=== PATIENT | male | born 1970 | race Caucasian/White ===

== ENCOUNTER → 2017-02-22 | Outpatient (CLI) | payer OTHER ==
[~2017-02-22] MED LIST: ACET-1311 PO; ADVIN25050 INH; ASPEC81 PO; CLX20 PO; GUAI100L PO; LPT40 PO; LRT5 PO; LSN20 PO; MTRUNK PO; NRV5 PO; OXYC-57 PO; TPRSR50 PO; [UNRECOGNIZED DRUG - OTHER] PO
[2017-02-22 16:39] LABS: BASO % 0.7 %; BASO ABS # 0.06 K/uL (0-0.2); COMPLETE YES; EOS % 2.2 %; HEMATOCRIT 46.6 % (42-52); IG% 0.4 %; LYMPH % 21.5 %; LYMPH ABS # 1.73 K/uL (1.2-3.4); MEAN CELL VOLUME 84.9 fL (80-100); MEAN CORPUSCULAR HEMOGLOBIN 29.3 pg (25-34); MEAN CORPUSCULAR HGB CONC 34.5 g/dl (32-36); MEAN PLATELET VOLUME 10.6 fL (7.4-10.4); MONO % 6.3 %; NEUT % 68.9 %; PLATELET COUNT 281 K/uL (130-400); RED BLOOD COUNT 5.49 M/uL (4.7-6.1); WHITE BLOOD COUNT 8.06 K/uL (4.8-10.8)
[2017-02-22 17:04] LABS: ALT/SGPT 76 U/L (12-78); AST/SGOT 43 U/L (15-37); BLOOD UREA NITROGEN 19 mg/dl (7-18); BUN/CREATININE RATIO 19.9 (10-20); CALCIUM 8.9 mg/dl (8.5-10.1); CARBON DIOXIDE 28 mmol/L (21-32); CHLORIDE 104 mmol/L (98-107); CREATININE 0.97 mg/dl (0.60-1.40); GLUCOSE 107 mg/dl (70-99); POTASSIUM 3.8 mmol/L (3.5-5.1); SODIUM 139 mmol/L (136-145)
[2017-02-22 17:15] LABS: ALB/GLOB RATIO 1.1 (0.9-2); ALKALINE PHOSPHATASE 89 U/L (45-117); CHOLESTEROL 180 mg/dl (0-200); CHOLESTEROL/HDL RATIO 3.6; HDL CHOLESTEROL 50 mg/dl; LDL CHOLESTEROL CALCULATED 101 mg/dl; TRIGLYCERIDES 147 mg/dl (0-150); VERY LOW DENSITY LIPOPROT CALC 29 mg/dl
== END | disposition home or self-care (01) ==
LOC: C.LABBFT 12:41
PROVIDERS: ATTEND Internal Medicine
DX: Z00.00 Encounter for general adult medical examination without abnormal findings (principal); J45.909 Unspecified asthma, uncomplicated; E78.5 Hyperlipidemia, unspecified; R06.09 Other forms of dyspnea; R07.9 Chest pain, unspecified; R53.83 Other fatigue

== ENCOUNTER 2017-03-27 13:21 | Inpatient (IN) | payer OTHER ==
[~2017-03-27] VITALS: Ht 172.7 cm; Wt 107.9 kg
[~2017-03-27 13:21] MED LIST changes: -ASPEC81 PO; -CLX20 PO; -LPT40 PO; -LSN20 PO; -NRV5 PO; -TPRSR50 PO
[2017-03-27] MEDS ORDERED: POLYETHYLENE (MIRALAX) 17 GM PACK PO PRN (14:45)
[2017-03-27] MEDS ORDERED: ONDANSETRON INJ 2 MG/ML 2 ML VIAL IV PRN (14:45)
[2017-03-27] MEDS ORDERED: MoRPHine SULFATE 2 MG/ML CARP IV PRN (14:45)
[2017-03-27] MEDS ORDERED: MAGNESIUM HYDROXIDE SUSP 30 ML UDC PO PRN (14:45)
[2017-03-27] MEDS ORDERED: ALUMINUM/MAGNESIUM/SIMETH (MAALOX MAX) 30 ML UDC PO PRN (14:45)
--- NOTE | 2017-03-27 14:57 | History and Physical ---
History & Physical Date & Time of Service: Mar 27, 2017 at 14:14 Chief Complaint: Unstable Angina Primary Care Physician: Rachel Swanson M.D. History of Present Illness Source: patient, clinic records, hospital records Patient is a 46 y/o male, with PMHx of HTN, hyperlipidemia, asthma, kidney stones, IBS, and depression, who was a direct admit from [facility] cardiology office due to unstable angina. Patient was seen by PCP in the beginning of February with complaints of progressive fatigue, dyspnea, and SOB since January. He was referred for a cardiac workup. Today patient was seen by cardiology for an echo stress test, which was abnormal. Patient admits to chest discomfort during stress test, but symptoms have since resolved. He will be admitted to tele with plans for cardiac cath tomorrow. Patient denies any fever, chills, sweats, lightheadedness, dizziness, vision changes, palpitations, edema, wheezing, cough , abdominal pain, nausea, vomiting, diarrhea, urinary symptoms, melena, numbness /tingling, weakness, muscle/joint pain, anxiety/depression, active bleeding, or new skin discoloration/changes. Past Medical/Surgical History Past Medical History: HTN hyperlipidemia asthma depression kidney stones IBS Surgical History: Cholecystectomy lithotripsy Family History CAD, cancer, depression, DM Social History Smoking Status: Former Smoker Smokeless Tobacco Use: No Alcohol Use: occasionally Drug Use: none Marital Status: Housing status: lives with family Occupational Status: employed (overhauler bus truck) Immunizations History of Influenza Vaccine: No History of Tetanus Vaccine?: No History of Pneumococcal: No History of Hepatitis B Vaccine: No Multi-Drug Resistant Organisms History of MDRO: No Allergies Coded Allergies: Codeine (Verified Allergy, Mild, 07/24/09) Home Medications Scheduled Acetaminophen (Tylenol), 650 MG PO PRN Amlodipine Besylate (Amlodipine Besylate), 10 MG PO QAM Aspirin (Aspirin EC Low Dose), 81 MG PO QAM Atorvastatin (Atorvastatin Calcium), 80 MG PO HS Citalopram (Citalopram Hydrobromide), 20 MG PO QAM Fluticasone Prop/Salmeterol (Advair Diskus 250/50 Mcg *), 1 PUFF INH BID Guaifenesin (Robitussin), 1 DOSE PO UD Hydrocodone/Acetaminophen 5MG/500MG (Vicodin 5MG/500MG), 1 TABLET PO Q4-6HR PRN Ibuprofen (Motrin Unknown Dose), 1-2 TABLETS PO Q4-6HR PRN Lisinopril (Lisinopril), 20 MG PO QAM Metoprolol Succinate (Metoprolol Succinate ER), 50 MG PO BID Ondansetron (Zofran Unkown Dose), 1 DOSE PO UD Oxycodone/Acetaminophen 5MG/325MG (Percocet 5MG/325MG), 1 TABLET PO Q4HR PRN Physical Exam General Appearance: no apparent distress Head: normocephalic, atraumatic Eyes: normal inspection, PERRL ENT: hearing grossly normal Neck: supple Respiratory/Chest: lungs clear, normal breath sounds, no respiratory distress, no accessory muscle use Cardiovascular: regular rate, rhythm Abdomen/GI: normal bowel sounds, non tender, soft Back: normal inspection Extremities/Musculoskelatal: normal inspection, no calf tenderness, no pedal edema Neurologic/Psych: no motor/sensory deficits, alert, normal mood/affect, oriented x 3 Skin: normal color, warm/dry, no rash Impression Assessment and Plan Patient is a 46 y/o male, with PMHx of HTN, hyperlipidemia, asthma, and depression, who was a direct admit from Dr. Lynch office due to unstable angina. Unstable angina: - Admit to tele for cardiac monitoring - Trend cardiac enzymes - EKG QAM and PRN for chest pain - IV Morphine PRN for chest pain - NPO after MD - Start IV Heparin gtt, Metoprolol 50 mg BID, nitro patch, ASA 81 mg daily, and increase Lipitor to 80 mg HS per cardiology recommendations - Lipid panel and TSH checked in Feb 2017- reviewed - Will check HgbA1c - Consult cardiology, appreciate recommendations Hyperlipidemia: Lipitor as above HTN: Continue Norvasc 10 mg daily and Lisinopril 20 mg daily Asthma- STABLE: Continue home inhalers Depression: Continue Celexa 20 mg daily IBS: Continue Imodium PRN DVT prophylaxis: IV Heparin Code Status: LEVEL I, FULL Dispo: From home, lives w/ family- no discharge needs anticipated Attending Addendum: I have physically seen and examined this patient, have directed the physician assistants medical activities, and agree with the H&P as noted above with the following exceptions as noted. The patient is awake, alert and oriented 3, well-developed and well-nourished , normocephalic and atraumatic, lying in bed and in no acute distress. HEENT--PERRL, EOMI, mucous membranes and oropharynx dry. Neck--supple, no JVD or bruits, thyroid normal, trachea midline, no adenopathy. Heart--normal S1 and S2, no extra beats, no murmurs, rubs or gallops. Lungs--clear bilaterally with good air movement, no respiratory distress, no accessory muscle use. Abdomen--normal bowel sounds and soft, nontender and nondistended, no hernias or masses, no organomegaly. Extremities--no cyanosis, clubbing or edema. There are good distal pulses b/l. Dermatologic--normal skin turgor, normal color, warm and dry, no abnormal lymph nodes, no rash. Neurologic--cranial nerves II through XII grossly intact, motor and sensory examination normal. Rheumatologic--normal range of motion, nontender, muscles and joints. Psychiatric--normal affect. Assessment and Plan: Unstable angina-- The patient will be admitted to telemetry for serial cardiac enzymes, cardiac rhythm monitoring and a 2-D echocardiogram with Dopplers. Nothing by mouth after midnight Start IV heparin standard infusion with bolus per weight-based protocol. Start metoprolol tartrate 50 mg by mouth twice a day. Start Nitroglycerin ointment 1 inch anterior chest wall every 6 hours. Aspirin 81 mg by mouth daily. Continue amlodipine 10 mg by mouth daily and lisinopril 20 mg by mouth daily. Increase Lipitor to 80 mg by mouth daily. Consult Dr. Lynch from cardiology for cardiac catheterization tomorrow Asthma-- Continue routine inhalers. Depression-- Continue citalopram 20 mg by mouth daily. Level of Care Telemetry Advanced Directives Existing Advance Directive: No Existing Living Will: No Existing Power of Stem Lead Former: No Resuscitation Status FULL RESUSCITATION VTE Prophylaxis Risk Level: Moderate Given or contraindicated: Unfractionated heparin SQ, T.E.D. Stockings, SCD's Social Service Consult None Apply
[2017-03-27] MEDS ORDERED: LOPERAMIDE HCL 2 MG CAP PO PRN (15:00)
[2017-03-27 15:50] LABS: HEMATOCRIT 43.9 % (42-52); MEAN CELL VOLUME 83.3 fL (80-100); MEAN CORPUSCULAR HGB CONC 34.9 g/dl (32-36); MEAN PLATELET VOLUME 9.7 fL (7.4-10.4); PLATELET COUNT 270 K/uL (130-400); RED BLOOD COUNT 5.27 M/uL (4.7-6.1); WHITE BLOOD COUNT 9.98 K/uL (4.8-10.8)
[2017-03-27 15:57] VITALS: BP 138/92; PULSE 65; TEMP 36.5; Ht 172.7 cm; Wt 107.9 kg
[2017-03-27 16:00] VITALS: O2SAT 96
[2017-03-27 16:03] VITALS: O2SAT 96
[2017-03-27 16:08] LABS: BLOOD UREA NITROGEN 18 mg/dl (7-18); BUN/CREATININE RATIO 18.9 (10-20); CALCIUM 9.1 mg/dl (8.5-10.1); CARBON DIOXIDE 27 mmol/L (21-32); CHLORIDE 104 mmol/L (98-107); CREATININE 0.93 mg/dl (0.60-1.40); GLUCOSE 90 mg/dl (70-99); POTASSIUM 3.9 mmol/L (3.5-5.1); SODIUM 139 mmol/L (136-145)
[2017-03-27 16:12] VITALS: BP 138/92; PULSE 65; TEMP 36.5; O2SAT 96
[2017-03-27] MEDS ORDERED: HEPARIN IV BOLUS 7,000 UNIT in SYRINGE 0 ML IV ONE (16:15)
[2017-03-27] MEDS ORDERED: HEPARIN 25,000 UNIT/500ML D5W 500 ML IV PRN (16:15)
[2017-03-27] MEDS ORDERED: INFLUENZA VIRUS QUAD VACCINE 0.5 ML SYR IM. ONE (16:30)
[2017-03-27] MEDS ORDERED: INFLUENZA ADMINISTRATION CHARGE ONE (16:30)
[2017-03-27] MEDS: NITROGLYCERIN OINT 2% 1GM PACKET EXT SCH ×2 (16:56→22:48)
[2017-03-27 17:22] LABS: ESTIMATED AVERAGE GLUCOSE 148 mg/dl; HA1C FLAG Normal (Normal)
--- NOTE | 2017-03-27 18:53 | CARDIOLOGY CONSULTATION ---
DATE OF CONSULTATION: 03/27/2017 CONSULTATION REQUESTED BY: Dr. Castellanos. REASON FOR CONSULTATION: Unstable angina. HISTORY OF PRESENT ILLNESS: Mr. Pacheco is a very pleasant 46-year-old man with a history of hypertension, hyperlipidemia, asthma, who was transferred from his cardiology office today in the setting of unstable angina and positive stress test. The patient has no prior cardiac history prior to his most recent visit. He states that over the last year or 2, he has noticed general decreased exercise tolerance, which has worsened over the last several months. With this, he has noted exertional substernal chest tightness which radiates down his left arm with a less and less exertion. He gives examples of climbing up stairs, walking on level ground at increased speed and when he does his medieval reenactments. Denies any diaphoresis, palpitations. Does report some mild presyncopal symptoms occasionally with exertion. He also endorses some mild lower extremity edema with being on amlodipine. The patient has been trying to get stress test since January and had test completed today. The patient went approximately 4 minutes and was stopped due to chest pain. Stress echo images reviewed and showed anterior septal exertional hypokinesis. At rest, the patient has had no chest pain. Currently, he is feeling well without any symptoms. PAST MEDICAL HISTORY: 1. Hypertension. 2. Hyperlipidemia. 3. Asthma. 4. Depression. 5. Kidney stones. 6. Irritable bowel syndrome. PAST SURGICAL HISTORY: Status post cholecystectomy, lithotripsy, ureteroscopy and percutaneous nephrostomy. FAMILY HISTORY: No history of premature coronary disease. His father from cancer in his 70s. SOCIAL HISTORY: He was an intermittent smoker up until several months ago. He reports report only social alcohol. Denies any illicit drugs. 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 He is . He has 1 child who is 5. HOME MEDICATIONS: Include Tylenol, fluticasone, guaifenesin, hydrocodone, acetaminophen, ibuprofen, Zofran, amlodipine and lisinopril. REVIEW OF SYSTEMS: A 10-point review of systems completed and otherwise negative unless stated in HPI. PHYSICAL EXAMINATION: VITAL SIGNS: Temperature 36.5, pulse 65, blood pressure 138/92. He is satting 96% on room air. GENERAL: The patient appears comfortable in no acute distress. HEENT: Sclerae are anicteric. Oropharynx is clear. Mucous membranes are moist. NECK: Supple with no lymphadenopathy. LUNGS: Clear to auscultation bilaterally. HEART: Regular rate and rhythm with no murmurs, rubs or gallops. ABDOMEN: Soft, nontender, nondistended with positive bowel sounds. EXTREMITIES: Warm. He has intact distal pulses including 2+ radial pulses bilaterally. SKIN: Shows no rashes or lesions. NEUROLOGIC: Nonfocal. PSYCHIATRIC: He is alert and oriented and appropriate. LABORATORY DATA: White blood cell count 9.9, hemoglobin 15.3, platelets 270. Sodium 139, potassium 3.9, BUN 18, creatinine 0.9. Initial troponin is 0.029. A1c is pending. IMPRESSION AND PLAN: 1. Accelerating angina/unstable angina. 2. Positive stress test. 3. Hypertension. 4. Hyperlipidemia. 5. Prior tobacco use. Mr. Pacheco is here with accelerating chest pain over the last several months in the setting of a grossly positive stress today at his cardiology office. With his typical anginal symptoms and high risk stress, suspicion for high risk coronary artery disease is high and will proceed with cardiac catheterization. Discussed risks, benefits and alternatives of the procedure with the patient, he is willing to proceed. We will plan to schedule for tomorrow morning. In the interim, we will start on aspirin, beta tess and high intensity statin. 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 Further recommendations pending findings of cardiac catheterization. Thank you for consultation. ROXANNE
[2017-03-27] MEDS: ACETAMINOPHEN 325 MG TAB PO PRN (19:28)
[2017-03-27] MEDS: METOPROLOL SUCC 50MG EXT REL TAB PO SCH (19:30)
[2017-03-27 19:31] VITALS: BP 116/71; PULSE 60; TEMP 36.5; O2SAT 97
[2017-03-27] MEDS: FLUTICASONE/SALMETEROL 250/50 (ADVAIR) 14 PUFF/1 INHALER INH SCH (19:31)
[2017-03-27] MEDS ORDERED: ATORVASTATIN 40 MG TAB PO SCH (21:00)
[2017-03-27 23:18] VITALS: BP 135/76; PULSE 55; TEMP 36.5; O2SAT 96
[2017-03-27 23:26] LABS: PARTIAL THROMBOPLASTIN RATIO 1.8
[2017-03-28] VITALS (8 sets, daily range): BP systolic 115–151; BP diastolic 69–92; PULSE 51–62; TEMP 36.5–36.7; O2SAT 95–99
[2017-03-28] MEDS: ACETAMINOPHEN 325 MG TAB PO PRN (04:26)
[2017-03-28 04:27] LABS: HEMATOCRIT 40.7 % (42-52); MEAN CELL VOLUME 83.7 fL (80-100); MEAN CORPUSCULAR HEMOGLOBIN 29.4 pg (25-34); MEAN CORPUSCULAR HGB CONC 35.1 g/dl (32-36); MEAN PLATELET VOLUME 9.5 fL (7.4-10.4); PLATELET COUNT 243 K/uL (130-400); RED BLOOD COUNT 4.86 M/uL (4.7-6.1); WHITE BLOOD COUNT 7.89 K/uL (4.8-10.8)
[2017-03-28] MEDS: NITROGLYCERIN OINT 2% 1GM PACKET EXT SCH ×2 (04:27→11:48)
[2017-03-28 04:43] LABS: PARTIAL THROMBOPLASTIN RATIO 1.9
[2017-03-28 05:00] LABS: BLOOD UREA NITROGEN 18 mg/dl (7-18); BUN/CREATININE RATIO 16.6 (10-20); CALCIUM 8.7 mg/dl (8.5-10.1); CARBON DIOXIDE 27 mmol/L (21-32); CHLORIDE 103 mmol/L (98-107); GLUCOSE 134 mg/dl (70-99); POTASSIUM 3.8 mmol/L (3.5-5.1); SODIUM 139 mmol/L (136-145)
[2017-03-28] MEDS ORDERED: NiCARDipine HCL INJ 2.5 MG/ML 10 ML AMP ONE (08:42)
[2017-03-28] MEDS ORDERED: MIDAZOLAM HCL 1 MG/ML 2ML VIAL ONE (08:43)
[2017-03-28] MEDS ORDERED: HEPARIN SOD (PORCINE) 1000 UNIT/ML 10 ML VIAL ONE (08:43)
[2017-03-28] MEDS ORDERED: FENTANYL CITRATE INJ 50 MCG/1 ML 2 ML VIAL ONE (08:43)
[2017-03-28] MEDS ORDERED: NITROGLYCERIN/D5W 100MCG/ML 20ML SYR ONE (08:44)
[2017-03-28] MEDS ORDERED: GLUCAGON FOR INJ 1 MG VIAL SQ PRN (08:45)
[2017-03-28] MEDS ORDERED: GLUCOSE 40% GEL 15 GM TUBE PO PRN (08:45)
[2017-03-28] MEDS ORDERED: DEXTROSE 50% 50 ML SYR IV PRN (08:45)
[2017-03-28] MEDS ORDERED: GLUCOSE 10 TABS/TUBE PO PRN (08:45)
[2017-03-28] MEDS ORDERED: AMLODIPINE BESYLATE 5 MG TAB PO SCH (09:00)
[2017-03-28] MEDS ORDERED: LISINOPRIL 20 MG TAB PO SCH (09:00)
[2017-03-28] MEDS ORDERED: CITALOPRAM 20 MG TAB PO SCH (09:00)
[2017-03-28] MEDS ORDERED: ASPIRIN 81 MG ECTAB PO SCH (09:00)
--- NOTE | 2017-03-28 10:51 | Procedure Note ---
Pre-Mod Sedation Assessment General Date of Moderate Sedation: Mar 28, 2017. Vital Signs: Vital Signs Past 12 Hours Date Time Temp Pulse Resp B/P (MAP) Pulse Ox O2 Delivery O2 Flow Rate FiO2 03/28/17 10:34 62 10 137/87 (104) 99 Nasal Cannula 6 03/28/17 08:00 Room Air 03/28/17 07:35 36.6 53 16 131/74 (93) 96 Room Air 03/28/17 04:07 36.5 51 20 115/69 (84) 95 Room Air 03/28/17 04:00 Room Air 03/27/17 23:59 Room Air 03/27/17 23:18 36.5 55 20 135/76 (95) 96 Room Air Review Cardiovascular: regular rate, rhythm, no edema Abdomen: normal bowel sounds, non tender Lungs: chest non-tender, lungs clear Airway Class: III Pre-Sedation Airway Assessment Oral Cavity: WNL Able to Visualize Vocal Cords: No Short Thick Neck: No Hx of Sleep Apnea: No Smoking Status: Former Smoker Mallampati Classification: Class III ASA Classification: Class III Procedure Planning Contraindications-for Mod Sed: None Yes Notes The planned sedation has been discussed with the patient and consent obtained. I have identified the patient, determined the appropriateness of sedation and have assessed the patient immediately prior to the procedure. All medicine(s) and interventions are by my order.
--- NOTE | 2017-03-28 10:52 | Procedure Note ---
Post-Mod Sedation Assessment General Date of Moderate Sedation Mar 28, 2017. Vital Signs: Vital Signs Past 12 Hours Date Time Temp Pulse Resp B/P (MAP) Pulse Ox O2 Delivery O2 Flow Rate FiO2 03/28/17 10:34 62 10 137/87 (104) 99 Nasal Cannula 6 03/28/17 08:00 Room Air 03/28/17 07:35 36.6 53 16 131/74 (93) 96 Room Air 03/28/17 04:07 36.5 51 20 115/69 (84) 95 Room Air 03/28/17 04:00 Room Air 03/27/17 23:59 Room Air 03/27/17 23:18 36.5 55 20 135/76 (95) 96 Room Air Review - Discharge Criteria Vital Signs Stable: Yes Alert/Oriented/Conversant: Yes Returned to Baseline Mental St: Yes Nausea Absent/Minimal: Yes Pain/Discomfort/Absent/Minimal: Yes Normal/Baseline Respirations: Yes Active Bleeding?: No Pt Received D/C Instructions: N/A Prescriptions Given: None Specific Proced. D/C Criteria Distal Pulses Present (Cardiac: Yes Groin site assessed-Card Cath: N/A Voided Prior To Discharge: N/A Discharged Patients Adult Escort/Transportation: Yes
[2017-03-28] MEDS ORDERED: INSULIN ASPART 100 UNITS/ML 3 ML PEN SC SCH (11:00)
[2017-03-28] MEDS ORDERED: SODIUM CHLORIDE 0.9% 1000ML 1,000 ML IV SCH (11:31)
[2017-03-28] MEDS ORDERED: ACETAMINOPHEN 325 MG TAB PO PRN (11:45)
[2017-03-28] MEDS: FLUTICASONE/SALMETEROL 250/50 (ADVAIR) 14 PUFF/1 INHALER INH SCH (11:48)
[2017-03-28] MEDS: METOPROLOL SUCC 50MG EXT REL TAB PO SCH (11:48)
[2017-03-28] MEDS ORDERED: NRV5 PO (13:50)
[2017-03-28] MEDS ORDERED: LSN20 PO (13:50)
[2017-03-28] MEDS ORDERED: TPRSR50 PO (13:50)
[2017-03-28] MEDS ORDERED: LPT40 PO (13:50)
--- NOTE | 2017-03-28 13:54 | Discharge Instructions ---
Discharge Instructions Date of Service Mar 28, 2017. Admission Reason for Admission: Unstable Angina Discharge Discharge Diagnosis / Problem: Unstable angina Discharge Goals Goal(s): Decrease discomfort, Improve function, Diagnostic testing, Therapeutic intervention Activity Recommendations Activity Limitations: resume your previous activity (as tolerated, as per [facility] [place]) . Instructions / Follow-Up Instructions / Follow-Up Patient was admitted to the hospital after developing chest pain during an outpatient echo stress test. The patient was taken to cardiac cath which revealed significant and complicated CAD warranting bypass. The patient will be transferred to . Cardiology recommends the patient leave on amlodipine, lisinopril, high intensity statin and metoprolol as above, as well as heparin drip 2 hours post cath. EqremaxbgmT4h was 6.8, recommend checking sugars and instituting insulin sliding scale as well as diabetic diet. Current Hospital Diet Patient's current hospital diet: AHA Diet (Heart Healthy) Discharge Diet Recommended Diet: AHA Diet (Heart Healthy), Diabetes Type 2 Diet Procedures Procedures Performed: Cardiac cath Pending Studies Studies pending at discharge: no Laboratory Results Hemoglobin A1c Test 03/27/17 15:29 Range/Units Estimated Average Glucose 148 mg/dl Hemoglobin A1c 6.8 H 4.5-5.6 % Lipid Panel Test 02/22/17 12:44 Range/Units Triglycerides Level 147 0-150 mg/dl Cholesterol Level 180 0-200 mg/dl HDL Cholesterol 50 mg/dl Cholesterol/HDL Ratio 3.6 LDL Cholesterol, Calculated 101 mg/dl Medical Emergencies . Who to Call and When: Medical Emergencies: If at any time you feel your situation is an emergency, please call 911 immediately. . Non-Emergent Contact Non-Emergency issues call your: Primary Care Provider, Nurse Research Call Non-Emergent contact if: you have a fever, you have any medication questions . Past History Medical & Surgical History: (1) Unstable angina . "Provider Documentation" section prepared by Vicenta Cedillo. . VTE Core Measure Inpt VTE Proph given/why not?: Unfractionated heparin SQ, T.E.D. Stockings, SCD 's
--- NOTE | 2017-03-28 14:35 | Cardiac Catheterization ---
Procedure Note Procedure Date Mar 28, 2017. Pre-Procedure Diagnosis Acute Coronary Syndrome AUC Score 8 Post-Procedure Diagnosis Severe CAD, Elevated Intracardiac Pressures Procedure(s) Performed Coronary Angiography, Left Heart Cath, IVUS Cork Grinder Syed Pediatric Assistant(s) Sasha Estimated Blood Loss 15 Medication(s) Fentanyl, Heparin, Nicardipine, Nitroglycerin, Versed, Lidocaine 1% Summary of Findings Indication: Unstable angina/High-risk stress test Access: 6Fr Slender right radial artery Catheters: Orwell, JL3.5, Pigtail; EBU 3.5 guide Findings: LM - 50% ostial stenosis (IVUS - 65% ostial minimally calcified stenosis, CSA 8 cm2) LAD - 95% diffuse proximal LAD stenosis before take-off of 1st diagonal. Luminal irregularities as wraps around apex. 1st diagonal with 90% ostial stenosis. Circumflex - Moderate caliber vessel, small OM1 with diffuse moderate disease; moderate caliber OM2 with 50-60% proximal stenosis. RCA - Large caliber vessel, dominant, 20-30% mid segment disease; distal RCA/PDA /PLB with luminal irregularities. IVUS - EBU 3.5 guide, BMW wire placed into circumflex (no significant proximal circumflex disease). LVEDP - 19 Arterial Closure: TR Band Summary: 1. Severe multivessel coronary artery disease - 60% ostial left main - 95% diffuse proximal LAD - 90% ostial 1st diagonal - 50-60% proximal OM2 2. Elevated intracardiac filling pressures Recommendations: With ostial LM disease and complex severe proximal LAD/bifurcation disease feel patient should be evaluated for CABG. Discussed with [facility] CT surgery, Cardiology and will transfer later today. In interim continue on heparin, ASA, Beta-tess/ANANT/Statin Hemodynamics Rest Ao: 115/79/96 Final Ao: 109/74/90 LV: 112/18 Recommendations CABG Specimens None Radiation Exposure (mGy) 2375 Contrast (mls) 115 Fluids (cc crystalloids) 105 Drains None Anesthesia Moderate Procedural Complication(s) None Disposition PCU ACC Data Cardiac Status Clinical evaluation leading to the procedure CAD Presntation: Unstable angina, Positive Stress Test Anginal Classification: CCS IV Heart Failure: No, NYHA Class: CCS I Cardiogenic Shock w/in 24Hrs: No Cardiac Arrest w/in 24Hrs: No Imaging studies past 6 months: Yes Stress studies past 6 months: Yes Stress Echocardiogram: Yes - Positive, Risk/Extent of Ischemia (High) Closure Device Percutaneous Entry Location: Radial Closure Device: Radial Band Recommendations: CABG Intraprocedure Events Significant Dissection: No Perforation: No
[2017-03-28] MEDS ORDERED: ASPEC81 PO (14:37)
[2017-03-28] MEDS ORDERED: CLX20 PO (14:43)
--- NOTE | 2017-03-28 14:45 | Discharge Summary ---
Discharge Summary Date of Service Mar 28, 2017. Discharge Summary Admission Date: Mar 27, 2017 at 14:01 Discharge Date: Mar 28, 2017 Discharge Disposition: Acute care facility ([facility] [place]) Principal Diagnosis: Unstable angina, coronary artery disease Immunizations: Have You Had Influenza Vaccine: No History of Tetanus Vaccine?: No History of Pneumococcal: No History of Hepatitis B Vaccine: No Procedures: Cardiac cath with 95% stenosis of proximal LAD Consultations: Cardiology--Dr. Lynch Medication Reconciliation New Medications: Amlodipine Besylate (Amlodipine Besylate) 5 Mg Tab 10 MG PO QAM for 30 Days, #60 TAB Atorvastatin (Atorvastatin Calcium) 40 Mg Tab 80 MG PO HS for 30 Days, #30 TAB Lisinopril (Lisinopril) 20 Mg Tab 20 MG PO QAM for 30 Days, #30 TAB Metoprolol Succinate (Metoprolol Succinate ER) 50 Mg Tabcr 50 MG PO BID for 30 Days, #60 TABS Continued Medications: Acetaminophen (Tylenol) 325 Mg Tab 650 MG PO PRN, 0 Refills Fluticasone Prop/Salmeterol (Advair Diskus 250/50 Mcg *) Aerp 1 PUFF INH BID, 0 Refills Guaifenesin (Robitussin) Syrp 1 DOSE PO UD Hydrocodone/Acetaminophen 5MG/500MG (Vicodin 5MG/500MG) Tab 1 TABLET PO Q4-6HR PRN, 0 Refills PAIN Ibuprofen (Motrin Unknown Dose) Tab 1 - 2 TABLETS PO Q4-6HR PRN, 0 Refills Ondansetron (Zofran Unkown Dose) Tab 1 DOSE PO UD Oxycodone/Acetaminophen 5MG/325MG (Percocet 5MG/325MG) Tab 1 TABLET PO Q4HR PRN, 0 Refills PAIN Discharge Exam Patient complains of some nausea and lower abdominal cramping, although he states this is improving. He does have a history of IBS which he states is usually fairly controlled with daily Immodium, but he has not taken this today. He denies any chest pain or shortness of breath currently. He does note some mildness in his right wrist at the site of the cardiac cath. The patient denies fevers, chills, sweats, chest pain, palpitations, claudication, cough, wheezing, shortness of breath, vomiting, dysuria, hematuria, urinary retention, paralysis, weakness, numbness and tingling. Review of Systems: Constitutional: No fever, No chills, No sweats Eyes: No worsening of vision, No eye pain, No diplopia ENT: No hearing loss, No sore throat, No trouble swallowing Respiratory: No cough, No wheezing, No shortness of breath Cardiovascular: No chest pain, No claudication, No palpitations Abdomen: + pain, + nausea, No vomiting Musculoskeletal: No joint pain, No muscle pain, No swelling Genitourinary - Male: No hematuria, No dysuria, No urinary retention Neurologic: No paralysis, No weakness, No numbness/tingling Integumentary: No rash, No itch, No color change Physical Exam: General Appearance: WD/WN, no apparent distress, + obese Eyes: normal inspection, PERRL, EOMI ENT: normal ENT inspection, hearing grossly normal, pharynx normal Neck: supple, no JVD, trachea midline Respiratory/Chest: lungs clear, normal breath sounds, no respiratory distress Cardiovascular: regular rate, rhythm, no gallop, + systolic murmur Abdomen / GI: normal bowel sounds, soft, + tenderness (lower abdominal tenderness) Extremities: normal inspection, no calf tenderness, no pedal edema Neurologic/Psychiatric: alert, normal mood/affect, oriented x 3 Skin: normal color, warm/dry, no rash Hospital Course 46 y/o male with a history of HTN, HLD, asthma, and depression, who was a direct admit from Dr. Lynch office due to unstable angina with chest pain during an echo stress test. Patient reports he has had progressive angina with even minimal activity, accompanied with shortness of breath, left arm numbness and tingling. Unstable angina - Admit to [facility] for cardiac monitoring. Pt in sinus bradycardia with HR 40s-50s - Cardiac enzymes negative x 3 - EKG shows 54 bpm, sinus bradycardia with 1st degree AV block and incomplete RBBB - IV Morphine PRN for chest pain - Cardiac cath on 03/28 with significant CAD, notably 95% stenosis in proximal LAD. Cardiology recommends transfer to [facility] [place] for bypass for optimal results - Continue ASA, metoprolol succinate 50 mg PO BID, lisinopril 20 mg PO qd, Lipitor 80 mg PO hs per cardio recos - Restart heparin drip 2 hours after cath - Lipid panel and TSH checked in Feb 2017- reviewed - HgbA1c 6.8 on 03/27. Recommend diabetic diet. Check BSG q ac and qhs. ISS - Cardiology spoke with physicians at [facility] [place]. No cardio beds right now, will transfer to [facility] [place]'s ER Hyperlipidemia -Lipitor as above HTN--stable -Continue Norvasc 10 mg daily and Lisinopril 20 mg daily Asthma--stable -Continue Advair BID Depression -Continue Celexa 20 mg daily IBS--pt takes Imodium scheduled daily. Nausea and abdominal cramping today, he attributes to IBS -Continue Imodium qd DVT prophylaxis -IV Heparin Code Status -Level I, FULL RESUSCITATION STATUS Total Time Spent: Greater than 30 minutes This includes examination of the patient, discharge planning, medication reconciliation, and communication with other providers. Discharge Instructions Please refer to the electronic Patient Visit Report (Discharge Instructions) for additional information. Additional Copies To Rachel Swanson M.D.
== END 2017-03-28 15:45 | disposition short-term general hospital (02) | DRG 287 ==
LOC: C.2T 14:01
PROVIDERS: ADMIT Hospitalist; ATTEND Hospitalist
PROC: B240ZZ3 Ultrasonography of Single Coronary Artery, Intravascular (ICD-10-PCS; principal; 2017-03-28 08:27)
PROC: 4A023N7 Measurement of Cardiac Sampling and Pressure, Left Heart, Percutaneous Approach (ICD-10-PCS; principal; 2017-03-28 08:27)
PROC: B2111ZZ Fluoroscopy of Multiple Coronary Arteries using Low Osmolar Contrast (ICD-10-PCS; principal; 2017-03-28 08:27)
DX: I25.110 Atherosclerotic heart disease of native coronary artery with unstable angina pectoris (principal); I10 Essential (primary) hypertension; E78.5 Hyperlipidemia, unspecified; J45.909 Unspecified asthma, uncomplicated; N20.0 Calculus of kidney; F32.9 Major depressive disorder, single episode, unspecified; K58.9 Irritable bowel syndrome, unspecified; Z87.891 Personal history of nicotine dependence

== ENCOUNTER → 2017-05-16 | Outpatient (CLI) | payer OTHER ==
[~2017-05-16] MED LIST changes: +ASPEC81 PO; +CLX20 PO; +LPT40 PO; +LSN20 PO; +NRV5 PO; +TPRSR50 PO
== END | disposition home or self-care (01) ==
LOC: C.LABBFT 10:50
PROVIDERS: ATTEND Internal Medicine
DX: K25.9 Gastric ulcer, unspecified as acute or chronic, without hemorrhage or perforation (principal)

== ENCOUNTER → 2017-06-07 | Day surgery (SDC) | payer OTHER ==
[2017-06-02 10:35] VITALS: BMI 33.0
[~2017-06-07] VITALS: Ht 172.7 cm; Wt 100.0 kg
[~2017-06-07] MED LIST changes: -ACET-1311 PO; +ACET500T58 PO; +ADVIN25/60 INH; -ADVIN25050 INH; +AMLO-114 PO; -ASPEC81 PO; +ASPI81TA28 PO; +ATOR-26 PO; +CITA20TA9 PO; -CLX20 PO; +GARL1CAP6 PO; -GUAI100L PO; +IMD/2 PO; +LIDOCAINE HCL 2% 2 ML VIAL (20MG/ML) ONE; +LISI20TA3 PO; -LPT40 PO; -LRT5 PO; -LSN20 PO; +MIDAZOLAM HCL 1 MG/ML 2ML VIAL ONE; -MTRUNK PO; +MULT-506 PO; -NRV5 PO; +NTRGSL/4 UT; -OXYC-57 PO; +OXYC1TAB3 PO; +PANT40TA PO; +PROPOFOL IV EMULSION 10 MG/ML 20 ML VIAL IV ONE; +SODIUM CHLORIDE 0.9% 500ML 500 ML IV ONE; +TAMS0.4C38 PO; -TPRSR50 PO; +VNTHFA/IN INH; -[UNRECOGNIZED DRUG - OTHER] PO
[2017-06-07 14:21] VITALS: TEMP 37.2
[2017-06-07 14:26] VITALS: Ht 172.7 cm; Wt 100.0 kg
--- NOTE | 2017-06-07 14:33 | Endo History and Physical ---
History & Physical Date of Service: Jun 07, 2017. Chief Complaint: GASTRIC ULCER Referring Physician: DR SOCRATES SPRAGUE History of Present Illness followup gastric ulcer Past Surgical History Hx Cardiac Surgery: Yes (CABG) Hx Internal Defibrillator: No Hx Pacemaker: No Hx Abdominal Surgery: Yes (CHEN) Hx of Implantable Prosthesis: No Hx Post-Op Nausea and Vomiting: No Hx Cancer Surgery: No Hx Thoracic Surgery: No Hx Orthopedic: Yes (BACK INJECTION) Hx Urinary Tract Surgery: Yes (LITHOTRIPSY, CYSTOSCOPY AND KIDNEY STONE REMOVAL ) Family History None Social History Smoking Status: Former Smoker Hx Substance Use: No Hx Alcohol Use: No Allergies Coded Allergies: Codeine (Verified Allergy, Mild, MUSCLE CRAMPS AND "MITZI HORSES" IN LEGS AND CHEST, 06/02/17) Current Medications Reported Home Medications Medications Dose Route/Sig Max Daily Dose Days Date Category Celexa (Citalopram Hydrobromide) 20 Mg Tab 20 Mg PO QAM 06/02/17 Reported Nitrostat (Nitroglycerin) 0.4 Mg Tab 0.4 Mg UT UD PRN 06/02/17 Reported Roxicodone Ir (Oxycodone HCl) 5 Mg Tab 5 Mg PO Q4H PRN 06/02/17 Reported Ventolin Hfa (Albuterol) 200 Puffs/27336 Mcg Aers 2-4 Puffs INH Q6H PRN 06/02/17 Reported Multivitamin (Multivitamins) Tab 1 Tab PO DAILY 06/02/17 Reported Advair Diskus 250/50 60 Dose (Fluticasone Prop/Salmeterol) 1 Ea Aerp 1 Puff INH BID 06/02/17 Reported Flomax (Tamsulosin Hcl) 0.4 Mg Cap 0.4 Mg PO QPM 06/02/17 Reported Protonix (Pantoprazole Sodium) 40 Mg Tab 40 Mg PO BID 06/02/17 Reported Lipitor (Atorvastatin Calcium) 80 Mg Tab 80 Mg PO QPM 06/02/17 Reported Aspirin Ec (Aspirin) 81 Mg Tab 81 Mg PO QAM 06/02/17 Reported Garlic 10 Mg Cap 1 Cap PO QAM 06/02/17 Reported Imodium (Loperamide HCl) 2 Mg Cap 2 Mg PO UD PRN 06/02/17 Reported Norvasc (Amlodipine Besylate) 10 Mg Tab 10 Mg PO QAM 06/02/17 Reported Prinivil (Lisinopril) 20 Mg Tab 20 Mg PO QAM 06/02/17 Reported Acetaminophen 500 Mg Tab 1-2 Tab PO Q6 PRN 06/02/17 Reported Vital Signs Weight (Kilograms): 100.00 Height (Feet): 5 Height (Inches): 8 Date Time Temp Pulse Resp B/P (MAP) Pulse Ox O2 Delivery O2 Flow Rate FiO2 06/07/17 14:21 37.2 75 20 142/72 (95) 100 Room Air Physical Exam General Appearance: WD/WN, no apparent distress Respiratory/Chest: Auscultation: breath sounds normal Cardiovascular: Heart Auscultation: RRR Abdomen: Bowel Sounds: normal Inspection & Palpation: soft, non-distended, no tenderness, guarding & rebound Assessment and Plan EGD
--- NOTE | 2017-06-07 15:27 | GI REPORT ---
Procedure Date: 06/07/2017 2:51 PM Procedure: Upper GI endoscopy Indications: Acute gastric ulcer, Follow-up of acute gastric ulcer Medicines: Propofol per Anesthesia Complications: No immediate complications. Estimated blood loss: Minimal. Estimated Blood Loss: Estimated blood loss was minimal. Procedure: Pre-Anesthesia Assessment: - Prior to the procedure, a History and Physical was performed, and patient medications and allergies were reviewed. The patient's tolerance of previous anesthesia was also reviewed. The risks and benefits of the procedure and the sedation options and risks were discussed with the patient. All questions were answered, and informed consent was obtained. Prior Anticoagulants: The patient has taken no previous anticoagulant or antiplatelet agents. ASA Grade Assessment: II - A patient with mild systemic disease. After reviewing the risks and benefits, the patient was deemed in satisfactory condition to undergo the procedure. After obtaining informed consent, the endoscope was passed under direct vision. Throughout the procedure, the patient's blood pressure, pulse, and oxygen saturations were monitored continuously. The scope was introduced through the mouth, and advanced to the second part of duodenum. The upper GI endoscopy was accomplished without difficulty. The patient tolerated the procedure well. Findings: The examined esophagus was normal. A small hiatus hernia was found. The proximal extent of the gastric folds (end of tubular esophagus) was 43 cm from the incisors. The hiatal narrowing was 45 cm from the incisors. The Z-line was 43 cm from the incisors. Diffuse mildly erythematous mucosa without bleeding was found in the gastric body and in the gastric antrum. Biopsies were taken with a cold forceps for histology. Estimated blood loss was minimal. Verification of patient identification for the specimen was done by the physician and materials technician using the patient's name and medical record number. The examined duodenum was normal. The cardia and gastric fundus were normal on retroflexion. Retained gastric contents are not identified on this exam. Stomach, esophageal or duodenal ulcers are not identified on today's exam Impression: - Normal esophagus. - Small hiatus hernia. - Erythematous mucosa in the gastric body and antrum. Biopsied. - Normal examined duodenum. Recommendation: - Discharge patient to home (ambulatory). - Resume regular diet. - Continue present medications. - Await pathology results. - Return to referring physician as previously scheduled. MD Mike Gaston MD 06/07/2017 3:26:50 PM This report has been signed electronically. Note Initiated On: 06/07/2017 2:51 PM I attest to the content of the Intraoperative Record and orders documented therein, exceptions below
--- NOTE | 2017-06-07 15:27 | Discharge Instructions ---
Endoscopy Patient Instructions Date / Procedure(s) Performed Jun 07, 2017. EGD Allergy Information Coded Allergies: Codeine (Verified Allergy, Mild, MUSCLE CRAMPS AND "MITZI HORSES" IN LEGS AND CHEST, 06/02/17) Discharge Date / Findings Jun 07, 2017. mild gastritis; no ulcers detected Medication Instructions Stopped Medication(s): ASPIRIN LAST DOSE 06/05/17 GARLIC LAST DOSE 06/05/17 Restart Stopped Medication(s): Reported Home Medications Medications Dose Route/Sig Max Daily Dose Days Date Category Celexa (Citalopram Hydrobromide) 20 Mg Tab 20 Mg PO QAM 06/02/17 Reported Nitrostat (Nitroglycerin) 0.4 Mg Tab 0.4 Mg UT UD PRN 06/02/17 Reported Roxicodone Ir (Oxycodone HCl) 5 Mg Tab 5 Mg PO Q4H PRN 06/02/17 Reported Ventolin Hfa (Albuterol) 200 Puffs/74326 Mcg Aers 2-4 Puffs INH Q6H PRN 06/02/17 Reported Multivitamin (Multivitamins) Tab 1 Tab PO DAILY 06/02/17 Reported Advair Diskus 250/50 60 Dose (Fluticasone Prop/Salmeterol) 1 Ea Aerp 1 Puff INH BID 06/02/17 Reported Flomax (Tamsulosin Hcl) 0.4 Mg Cap 0.4 Mg PO QPM 06/02/17 Reported Protonix (Pantoprazole Sodium) 40 Mg Tab 40 Mg PO BID 06/02/17 Reported Lipitor (Atorvastatin Calcium) 80 Mg Tab 80 Mg PO QPM 06/02/17 Reported Aspirin Ec (Aspirin) 81 Mg Tab 81 Mg PO QAM 06/02/17 Reported Garlic 10 Mg Cap 1 Cap PO QAM 06/02/17 Reported Imodium (Loperamide HCl) 2 Mg Cap 2 Mg PO UD PRN 06/02/17 Reported Norvasc (Amlodipine Besylate) 10 Mg Tab 10 Mg PO QAM 06/02/17 Reported Prinivil (Lisinopril) 20 Mg Tab 20 Mg PO QAM 06/02/17 Reported Acetaminophen 500 Mg Tab 1-2 Tab PO Q6 PRN 06/02/17 Reported Reported Home Medications Medications Dose Route/Sig Max Daily Dose Days Date Category Celexa (Citalopram Hydrobromide) 20 Mg Tab 20 Mg PO QAM 06/02/17 Reported Nitrostat (Nitroglycerin) 0.4 Mg Tab 0.4 Mg UT UD PRN 06/02/17 Reported Roxicodone Ir (Oxycodone HCl) 5 Mg Tab 5 Mg PO Q4H PRN 06/02/17 Reported Ventolin Hfa (Albuterol) 200 Puffs/10980 Mcg Aers 2-4 Puffs INH Q6H PRN 06/02/17 Reported Multivitamin (Multivitamins) Tab 1 Tab PO DAILY 06/02/17 Reported Advair Diskus 250/50 60 Dose (Fluticasone Prop/Salmeterol) 1 Ea Aerp 1 Puff INH BID 06/02/17 Reported Flomax (Tamsulosin Hcl) 0.4 Mg Cap 0.4 Mg PO QPM 06/02/17 Reported Protonix (Pantoprazole Sodium) 40 Mg Tab 40 Mg PO BID 06/02/17 Reported Lipitor (Atorvastatin Calcium) 80 Mg Tab 80 Mg PO QPM 06/02/17 Reported Aspirin Ec (Aspirin) 81 Mg Tab 81 Mg PO QAM 06/02/17 Reported Garlic 10 Mg Cap 1 Cap PO QAM 06/02/17 Reported Imodium (Loperamide HCl) 2 Mg Cap 2 Mg PO UD PRN 06/02/17 Reported Norvasc (Amlodipine Besylate) 10 Mg Tab 10 Mg PO QAM 06/02/17 Reported Prinivil (Lisinopril) 20 Mg Tab 20 Mg PO QAM 06/02/17 Reported Acetaminophen 500 Mg Tab 1-2 Tab PO Q6 PRN 06/02/17 Reported Provider Instructions Activity Restrictions - No exercising or heavy lifting for 24 hours. - Do not drink alcohol the day of the procedure. - Do not drive a car or operate machinery until the day after the procedure. - Do not make any important decisions or sign important papers in 24 hours after the procedure. Following Day: - Return to full activity which may include returning to work/school. Diet Start your diet with liquids and light foods (jello, soup, juice, toast). Then eat your usual diet if not nauseated. Treatment For Common After Affects For mild abdominal pain, bloating, or excessive gas: - Rest - Eat lightly - Lie on right side Follow-Up Information Follow-up with DR SOCRATES SPRAGUE as scheduled Anesthesia Information What You Should Know You have had a procedure that required some medicine to reduce anxiety and discomfort. This treatment is called moderate sedation. After receiving the treatment, you may be sleepy, but you will be able to breathe on your own. The effects of the treatment may last for several hours. Follow these instructions along with Activity/Diet recommendations noted above: * Do NOT do anything where dizziness or clumsiness would be dangerous. * Rest quietly at home today, then you can be up and about tomorrow. * Have a responsible person stay with you the rest of today. * You may have had an I.V. today. If so, you may take the dressing off later today. Recommendations Call your doctor if: * Trouble breathing * Continuous vomiting for more than 24 hours * Temperature above 101 degrees * Severe abdominal pain or bloating * Pain not relieved by pain medicine ordered * There is increased drainage or redness from any incision * A large amount of rectal bleeding greater than 2-3 tablespoons. (If you had a polyp/s removed or have hemorrhoids, a small amount of blood - from the rectum is to be expected.) * You have any unanswered questions or concerns. IN THE EVENT OF A SERIOUS EMERGENCY, GO TO THE NEAREST EMERGENCY ROOM Your discharge instructions were prepared by provider Mike Sosa. Patient Instructions Signature Page Rohit Pacheco Patient (or Guardian) Signature/Date: I have read and understand the instructions given to me by my caregivers. Caregiver/RN/Doctor Signature/Date: The above-named patient and/or guardian has received patient instructions on this date. + Original Patient Signature Page (only) stays with chart. Please make copy for patient.
--- NOTE | 2017-06-07 15:30 | Anesthesiology Progress Note ---
Anesthesia Post Op Note Date & Time Jun 07, 2017 at 15:30 Vital Signs Pain Intensity: 3 Vital Signs Past 12 Hours Date Time Temp Pulse Resp B/P (MAP) Pulse Ox O2 Delivery O2 Flow Rate FiO2 06/07/17 15:16 79 16 112/65 (81) 100 Room Air 06/07/17 14:21 37.2 75 20 142/72 (95) 100 Room Air Notes Mental Status: alert / awake / arousable, participated in evaluation Pt Amnestic to Procedure: Yes Nausea / Vomiting: adequately controlled Pain: adequately controlled Airway Patency, RR, SpO2: stable & adequate BP & HR: stable & adequate Hydration State: stable & adequate Anesthetic Complications: no major complications apparent
[2017-06-07 15:46] VITALS: BP 125/70; PULSE 69; O2SAT 97
== END | disposition home or self-care (01) ==
LOC: C.GI 14:04
PROVIDERS: ATTEND Internal Medicine Gastroenterology
DX: K25.3 Acute gastric ulcer without hemorrhage or perforation (principal); K44.9 Diaphragmatic hernia without obstruction or gangrene; Z87.891 Personal history of nicotine dependence; I25.119 Atherosclerotic heart disease of native coronary artery with unspecified angina pectoris; Z95.1 Presence of aortocoronary bypass graft; Z79.899 Other long term (current) drug therapy; I10 Essential (primary) hypertension; E78.5 Hyperlipidemia, unspecified; J45.909 Unspecified asthma, uncomplicated; F32.9 Major depressive disorder, single episode, unspecified

== ENCOUNTER → 2017-06-16 | Outpatient (CLI) | payer OTHER ==
[~2017-06-16] MED LIST changes: -AMLO-114 PO; +AMLO10TA3 PO; -LIDOCAINE HCL 2% 2 ML VIAL (20MG/ML) ONE; -MIDAZOLAM HCL 1 MG/ML 2ML VIAL ONE; +OXYC-90 PO; -OXYC1TAB3 PO; -PROPOFOL IV EMULSION 10 MG/ML 20 ML VIAL IV ONE; -SODIUM CHLORIDE 0.9% 500ML 500 ML IV ONE
[2017-06-16 18:49] LABS: ALT/SGPT 38 U/L (12-78); BLOOD UREA NITROGEN 19 mg/dl (7-18); CALCIUM 9.4 mg/dl (8.5-10.1); CARBON DIOXIDE 28 mmol/L (21-32); CREATININE 1.02 mg/dl (0.60-1.40); GLUCOSE 104 mg/dl (70-99); POTASSIUM 3.6 mmol/L (3.5-5.1); SODIUM 139 mmol/L (136-145)
[2017-06-16 18:52] LABS: ALKALINE PHOSPHATASE 133 U/L (45-117); AST/SGOT 26 U/L (15-37); TOTAL PROTEIN 7.9 gm/dl (6.4-8.2)
== END | disposition home or self-care (01) ==
LOC: C.LABBC 17:21
PROVIDERS: ATTEND Internal Medicine
DX: Z00.00 Encounter for general adult medical examination without abnormal findings (principal); I10 Essential (primary) hypertension; E78.5 Hyperlipidemia, unspecified

== ENCOUNTER → 2017-09-20 | Outpatient (CLI) | payer OTHER ==
[~2017-09-20] MED LIST changes: +AMLO-114 PO; -AMLO10TA3 PO; -OXYC-90 PO; +OXYC1TAB3 PO
[2017-09-21 06:31] LABS: HEMOGLOBIN A1C 6.7 % (4.5-5.6)
== END | disposition home or self-care (01) ==
LOC: C.LABBFT 13:10
PROVIDERS: ATTEND Internal Medicine
DX: Z00.00 Encounter for general adult medical examination without abnormal findings (principal); E78.5 Hyperlipidemia, unspecified; R73.01 Impaired fasting glucose

== ENCOUNTER → 2018-01-15 | Outpatient (CLI) | payer OTHER ==
[~2018-01-15] MED LIST changes: -AMLO-114 PO; +AMLO10TA3 PO; +OXYC-90 PO; -OXYC1TAB3 PO
--- NOTE | 2018-01-15 11:34 | DIAGNOSTIC IMAGING REPORT ---
BRAIN WITHOUT CONTRAST HISTORY: 47 years-old Male [id number] [id number] acute headache and dizziness with recent head trauma COMPARISON: None available TECHNIQUE: Multiplanar multisequence MRI of the brain was obtained without the use of IV contrast. FINDINGS: Large [id number] cell assembly pinner localizer images demonstrate no gross abnormality. There is no restricted diffusion to suggest acute or subacute infarction. The midline structures including the corpus callosum, brainstem, optic chiasm, pituitary and pineal glands appear unremarkable on the sagittal T1 series. There is no cerebellar tonsillar herniation. Degenerative changes at the C1-C2 articulation are noted. There is no acute intracranial hemorrhage, midline shift, abnormal extra-axial collections, hydrocephalus or intracranial mass. There are a few punctate foci of T2/FLAIR prolongation within the subcortical white matter of the bilateral cerebral hemispheres, seen best on the coronal FLAIR series. These are likely of no clinical significance. No pathologic blooming artifact on the T2 star series. The major flow voids appear patent. Orbits are symmetric and within normal limits. Trace fluid within the mastoid air cells bilaterally. Minimal mucosal thickening of the ethmoid air cells and maxillary sinuses. Mild rightward bowing of the nasal septum. The skull and soft tissues are unremarkable. IMPRESSION: No acute intracranial abnormality. The above report was generated using voice recognition software. It may contain grammatical, syntax or spelling errors. Electronically signed by: Darian Jiménez M.D. 01/15/2018 11:33 AM Dictated Date/Time: 01/15/2018 11:27 AM
== END | disposition home or self-care (01) ==
LOC: C.MRI 10:49
PROVIDERS: ATTEND Family Medicine
DX: S09.90XA Unspecified injury of head, initial encounter (principal); X58.XXXA Exposure to other specified factors, initial encounter